=== PATIENT | female | born 1955 ===

== ENCOUNTER → 2021-12-03 | Outpatient (CLI) | payer OTHER, MEDICARE ==
--- NOTE | 2021-12-09 09:34 | RAD ---
EXAM: Bilateral carotid duplex with waveform analysis. CLINICAL HISTORY: PRE-OP SURG, HX OF SMOKING, DIABETIC RETINOPATHY OF BOTH EYES TECHNIQUE: Longitudinal and transverse sonographic images of the bilateral carotid arteries was perfo rmed utilizing grayscale, color and spectral Doppler techniques. COMPARISON: None FINDINGS: Right Carotid: Atherosclerotic plaque is present Left Carotid: Atherosclerotic plaque is present Vertebrals: Antegrade flow bilaterally. Right: PSV CCA (cm/s): 65 PSV ICA (cm/s): Mid and distal occlusion EDV ICA (cm/s): Mid and distal occlusion PSV ECA (cm/s): 77 ICA/CCA Ratio: NA Left: PSV CCA (cm/s): 123 PSV ICA (cm/s): 127 EDV ICA (cm/s): 58 PSV ECA (cm/s): 70 ICA/CCA Ratio: 1.0 IMPRESSION: 1. 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 2. Left ICA velocity consistent with 50-69 percent stenosis, left ICA/CCA ratio consistent with less than 50 percent stenosis. Consensus Panel [place]-scale and Doppler US Criteria for Diagnosis of ICA Stenosis Degree of Stenosis (%) ICA PSV (Cm/sec) Plaque Estimate (%)* Normal <125 None <50 <125 <50 50-69 125-230 >50 >70 but < near occlusion >230 >50 Near occlusion High, low, or undetectable Visible Total occlusion Undetectable Visible, no detectable lumen *Plaque estimate (diameter reduction) with [place]iddleton-scale and color Doppler US Degree of Stenosis (%) ICA/CCA PSV Ratio ICA EDV (cm/sec) Normal <2.0 <40 <50 <2.0 <40 50-69 2.0-4.0 40-100 >70 but < near occlusion >4.0 >100 Near occlusion Variable Variable Total occlusion Not applicable Not applicable Electronically signed by: Barrington Bartholomew MD (12/09/2021 9:32 AM) [id number]
== END ==
LOC: US 09:07
PROVIDERS: ATTEND Family Medicine
DX: Z01.818 Encounter for other preprocedural examination (principal); I65.23 Occlusion and stenosis of bilateral carotid arteries; E08.35 Diabetes mellitus due to underlying condition with proliferative diabetic retinopathy; F17.210 Nicotine dependence, cigarettes, uncomplicated
CPT/HCPCS: 93880